=== PATIENT | male | born 1960 | race African-American/Black ===

== ENCOUNTER 2022-05-14 01:44 | Inpatient (IN) | payer MEDICAID ==
[~2022-05-14] VITALS: Ht 185.4 cm; Wt 116.6 kg
[2022-05-14] VITALS (14 sets, daily range): BP systolic 109–166; BP diastolic 45–78
[2022-05-14 02:57] LABS: BASOPHILS % 0.6 % (0.0-2.0); EOSINOPHILS % 2.1 % (0.0-5.0); HEMATOCRIT. 43.5 % (42.0-52.0); HEMOGLOBIN. 14.5 g/dL (14.0-18.0); LYMPHOCYTES % 27.7 % (20.0-50.0); MEAN CORPUSCULAR HEMOGLOBIN 31.4 pg (28.0-32.0); MEAN CORPUSCULAR VOLUME 93.8 fL (80.0-94.0); MEAN PLATELET VOLUME 8.2 fl (7.4-10.4); MONOCYTES % 8.9 % (2.0-8.0); NEUTROPHILS % 60.7 % (40.0-76.0); PLATELET 283 x1000/uL (130-400); RED BLOOD CELL COUNT 4.64 mill/uL (4.7-6.1); RED CELL DISTRIBUTION WIDTH 13.9 % (11.6-14.6)
[2022-05-14 03:14] LABS: CHLORIDE 104 mEq/L (98-107)
[2022-05-14] MEDS ORDERED: GUAIFENESIN 200MG/10ML SUGAR FREE UDC PO PRN (06:00)
[2022-05-14] MEDS ORDERED: ONDANSETRON HCL 4MG/2ML INJ IV PRN (06:00)
[2022-05-14] MEDS ORDERED: DOCUSATE SODIUM 100MG CAPSULE PO PRN (06:00)
[2022-05-14] MEDS ORDERED: POTASSIUM CHLORIDE 20MEQ TABLET SR PO NR (06:00)
[2022-05-14] MEDS ORDERED: MAGNESIUM/ALUMINUM HYDROXIDE/SIMETHICONE 30ML UDC PO PRN (06:00)
[2022-05-14] MEDS ORDERED: CLONIDINE 0.1MG TABLET PO PRN (06:00)
[2022-05-14] MEDS ORDERED: ACETAMINOPHEN 325MG TABLET PO PRN ×2 (06:00→14:00)
[2022-05-14] MEDS: SODIUM CHLORIDE 0.9% 1,000 ML IV SCH ×2 (06:41→20:44)
[2022-05-14] MEDS: PANTOPRAZOLE 40MG DR TABLET PO SCH (08:33)
[2022-05-14] MEDS: ENOXAPARIN 30MG/0.3ML SYR SUBCUT SCH ×2 (08:34→21:00)
[2022-05-14 08:38] LABS: CREATINE KINASE MB FRACTION 2.9 ng/mL (0.5-3.6); PHOSPHORUS 2.5 mg/dL (2.5-4.9)
[2022-05-14] MEDS ORDERED: ASPIRIN 81MG TABLET PO SCH (09:00)
[2022-05-14] MEDS ORDERED: LIDOCAINE HCL/PF 1% 10 MG/ML 5ML VIAL ONE (11:10)
[2022-05-14] MEDS ORDERED: VERAPAMIL HCL 2.5 MG/1 ML 2ML VIAL IV ONE (11:10)
[2022-05-14] MEDS ORDERED: DIPHENHYDRAMINE 50MG/ML VIAL ONE (11:10)
[2022-05-14] MEDS ORDERED: HEPARIN 1000 UNITS/ML 10ML ONE (11:11)
[2022-05-14] MEDS ORDERED: IODIXANOL 320MG/ML 100 ML BOTTLE IV ONE ×2 (11:11→12:45)
[2022-05-14] MEDS ORDERED: MIDAZOLAM HCL 2 MG/2 ML VIAL ONE (11:57)
[2022-05-14] MEDS ORDERED: FENTANYL CITRATE/PF 50MCG/ML 2ML VIAL ONE (11:57)
[2022-05-14] MEDS ORDERED: TICAGRELOR 90 MG TABLET PO ONE ×2 (13:10)
[2022-05-14] MEDS ORDERED: ASPIRIN 325MG TABLET ONE (13:13)
[2022-05-14] MEDS ORDERED: ATROPINE SULFATE 1MG/10ML SYR IV PRN (14:00)
[2022-05-14] MEDS ORDERED: SODIUM CHLORIDE 0.45% 500 ML IV ONE (14:00)
[2022-05-14] MEDS ORDERED: ATORVASTATIN CALCIUM 40MG TABLET PO SCH (21:00)
[2022-05-14] MEDS ORDERED: TRAMADOL 50MG TABLET PO PRN (21:45)
[2022-05-14] MEDS ORDERED: NALOXONE HCL 0.4MG/ML VIAL IV PRN (21:45)
[2022-05-14] MEDS: TICAGRELOR 90 MG TABLET PO SCH (21:54)
[2022-05-14] MEDS ORDERED: ATOR-2 MT (22:37)
[2022-05-14] MEDS ORDERED: DOCU100T MT (22:37)
[2022-05-14] MEDS ORDERED: OXYC1TAB12 PO (22:37)
[2022-05-14] MEDS ORDERED: ISOS30TA91 MT (22:37)
[2022-05-14] MEDS ORDERED: ASPI-1497 MT (22:37)
[2022-05-14] MEDS ORDERED: CARV6.2548 MT (22:37)
[2022-05-14] MEDS ORDERED: HYDR25TA PO (22:46)
[2022-05-14] MEDS: HYDRALAZINE HCL 25MG TABLET PO SCH (23:43)
[2022-05-15] VITALS (7 sets, daily range): BP systolic 126–156; BP diastolic 57–79
[2022-05-15] MEDS ORDERED: AMLO5TAB88 PO (05:32)
[2022-05-15] MEDS ORDERED: HYDR-4134 PO (05:41)
[2022-05-15] MEDS: PANTOPRAZOLE 40MG DR TABLET PO SCH (05:49)
[2022-05-15] MEDS: HYDRALAZINE HCL 25MG TABLET PO SCH (05:50)
[2022-05-15 07:44] LABS: BASOPHILS % 0.4 % (0.0-2.0); EOSINOPHILS % 2.3 % (0.0-5.0); HEMATOCRIT. 39.5 % (42.0-52.0); HEMOGLOBIN. 13.4 g/dL (14.0-18.0); LYMPHOCYTES % 24.5 % (20.0-50.0); MEAN CORPUSCULAR HEMOGLOBIN 31.8 pg (28.0-32.0); MEAN CORPUSCULAR VOLUME 93.7 fL (80.0-94.0); MEAN PLATELET VOLUME 8.2 fl (7.4-10.4); MONOCYTES % 10.8 % (2.0-8.0); PLATELET 247 x1000/uL (130-400); RED BLOOD CELL COUNT 4.21 mill/uL (4.7-6.1); RED CELL DISTRIBUTION WIDTH 13.8 % (11.6-14.6)
[2022-05-15 08:35] LABS: CHLORIDE 111 mEq/L (98-107)
[2022-05-15] MEDS ORDERED: OXYCODONE HCL/ACETAMINOPHEN 5/325MG TABLET PO NR (08:45)
[2022-05-15 08:50] LABS: HDL CHOLESTEROL 29 mg/dL (40-59); LDL CHOLESTEROL 33 mg/dL (5-100); T4 FREE 0.97 ng/dL (0.76-1.46)
[2022-05-15] MEDS ORDERED: ASPIRIN 81MG TABLET PO SCH (09:00)
[2022-05-15] MEDS ORDERED: CARVEDILOL 6.25 MG TABLET PO SCH (09:00)
[2022-05-15] MEDS ORDERED: HYDROCHLOROTHIAZIDE 25MG TABLET PO SCH (09:00)
[2022-05-15] MEDS ORDERED: AMLODIPINE 5MG TABLET PO SCH (09:00)
[2022-05-15] MEDS ORDERED: POTASSIUM CHLORIDE 20MEQ TABLET SR PO NR (09:00)
[2022-05-15] MEDS ORDERED: POTASSIUM CHLORIDE 20MEQ TABLET SR PO ONE (09:00)
[2022-05-15] MEDS: TICAGRELOR 90 MG TABLET PO SCH (09:26)
[2022-05-15] MEDS: SODIUM CHLORIDE 0.9% 1,000 ML IV SCH (09:36)
[2022-05-15] MEDS ORDERED: HYDRALAZINE HCL 25MG TABLET PO SCH ×2 (14:00)
[2022-05-16] MEDS ORDERED: FAMOTIDINE 20MG TABLET PO SCH (09:00)
== END 2022-05-15 13:20 | disposition home or self-care (01) | DRG 174 ==
LOC: ER 01:44 → MICUSO 02:57 → 7EST 05:39 → 3WST 18:45
PROVIDERS: ADMIT Hospitalist; ATTEND Hospitalist
PROC: 4A023N7 Measurement of Cardiac Sampling and Pressure, Left Heart, Percutaneous Approach (ICD-10-PCS; principal; 2022-05-14)
PROC: 027034Z Dilation of Coronary Artery, One Artery with Drug-eluting Intraluminal Device, Percutaneous Approach (ICD-10-PCS; 2022-05-14)
PROC: B211YZZ Fluoroscopy of Multiple Coronary Arteries using Other Contrast (ICD-10-PCS; 2022-05-14)
PROC: 4A033BC Measurement of Arterial Pressure, Coronary, Percutaneous Approach (ICD-10-PCS; 2022-05-14)
PROC: B240ZZ3 Ultrasonography of Single Coronary Artery, Intravascular (ICD-10-PCS; 2022-05-14)
PROC: 02703ZZ Dilation of Coronary Artery, One Artery, Percutaneous Approach (ICD-10-PCS; 2022-05-14)
DX: I21.4 Non-ST elevation (NSTEMI) myocardial infarction (principal); N17.9 Acute kidney failure, unspecified; E44.1 Mild protein-calorie malnutrition; E88.09 Other disorders of plasma-protein metabolism, not elsewhere classified; T39.011A Poisoning by aspirin, accidental (unintentional), initial encounter; E87.6 Hypokalemia; Z20.822 Contact with and (suspected) exposure to COVID-19; E05.90 Thyrotoxicosis, unspecified without thyrotoxic crisis or storm; I12.9 Hypertensive chronic kidney disease with stage 1 through stage 4 chronic kidney disease, or unspecified chronic kidney disease; I25.10 Atherosclerotic heart disease of native coronary artery without angina pectoris; N18.9 Chronic kidney disease, unspecified; G89.29 Other chronic pain; M19.90 Unspecified osteoarthritis, unspecified site; R73.9 Hyperglycemia, unspecified; I25.2 Old myocardial infarction; Z88.0 Allergy status to penicillin; Z90.5 Acquired absence of kidney; Y92.89 Other specified places as the place of occurrence of the external cause; Z68.33 Body mass index [BMI] 33.0-33.9, adult
CPT/HCPCS: 36415; 71045; 80053; 80061; 82550; 82553; 83735; 83880; 84100; 84439; 84443; 84484; 85025; 85347; 85379; 87426; 92928; 92978; 93005; 93306; 93458; 93571; 97161; 99285; C1753; C1769; C1874; C1887; C1893; J1200; J1644; J1650; J2250; J3010; J3490; J7030; Q9967; J8499